=== PATIENT | female | born 1935 | race Caucasian/White ===

== ENCOUNTER → 2024-01-20 | Day surgery (SDC) | payer MEDICARE, BC ==
[~2024-01-20] MED LIST: ALLOPURINOL300 MG PO; ATORVASTATIN CA20 MG PO; B-1100 M1; B-121000 MC2; CALCIUM ACETAT667 MG PO; CLOPIDOGREL75 MG PO; EPINEPHRINE HCL 1:1000 1ML 1 MG/ML AMP ONE; LACTATED RINGER'S 1,000 ML ONE; LEVOTHYROXINE50 MCG PO; LIDOCAINE 1% W/EPINEPHRINE 20 ML VIAL ONE; LISINOPRIL20 MG PO; METOPROLOL SUCC50 MG PO; ONDANSETRON HCL INJ 2MG/ML 2ML 2 MG/ML VIAL ONE; OXYMETAZOLINE HCL 0.05% NAS 1 SPRAY BTL ONE; VITAMIN C1000 MG PO; VITAMIN D31 ML
[2024-01-20] MEDS: ONDANSETRON HCL INJ 2MG/ML 2ML 2 MG/ML VIAL IV ONE (12:00)
[2024-01-20 13:00] VITALS: BP 155/66; PULSE 72; RESP 16; O2SAT 95
== END | disposition home or self-care (01) ==
LOC: OR 07:21
PROVIDERS: ATTEND Otolaryngology Otolaryngology/Facial Plastic Surgery
DX: C02.1 Malignant neoplasm of border of tongue (principal); I10 Essential (primary) hypertension; I25.10 Atherosclerotic heart disease of native coronary artery without angina pectoris; E03.9 Hypothyroidism, unspecified; K21.9 Gastro-esophageal reflux disease without esophagitis; Z79.02 Long term (current) use of antithrombotics/antiplatelets; Z79.899 Other long term (current) drug therapy; Z95.5 Presence of coronary angioplasty implant and graft
CPT/HCPCS: 31535; 31622; 41112; 43191; 71046; 88305; 93005; J2405; J7121; J0171